=== PATIENT | female | born 1955 | race Caucasian/White ===

== ENCOUNTER 2017-09-15 08:00 | Outpatient (CLI) | payer OTHER | END 2017-09-15 08:01 | disposition home or self-care (01) | LOC: LAB.R 08:00 | PROVIDERS: ATTEND Physician Assistant Medical | DX: R82.90 Unspecified abnormal findings in urine (principal) | CPT/HCPCS: 87077; 87086 ==

== ENCOUNTER 2017-10-05 08:00 | Outpatient (CLI) | payer OTHER | END 2017-10-05 08:01 | disposition home or self-care (01) | LOC: LAB.R 08:00 | PROVIDERS: ATTEND Physician Assistant Medical | DX: N39.0 Urinary tract infection, site not specified (principal) | CPT/HCPCS: 87077; 87086 ==

== ENCOUNTER 2017-10-19 08:00 | Outpatient (CLI) | payer OTHER | END 2017-10-19 08:01 | disposition home or self-care (01) | LOC: LAB.WCP 08:00 | PROVIDERS: ATTEND Physician Assistant Medical | DX: N39.0 Urinary tract infection, site not specified (principal) | CPT/HCPCS: 87086 ==

== ENCOUNTER 2017-12-23 10:18 | Emergency (ER) | payer OTHER ==
[2017-12-23 10:44] LABS: BILIRUBIN,URINE NEGATIVE (NEGATIVE); GLUCOSE, URINE (UA) NEGATIVE (NEGATIVE); KETONES,URINE (UA) NEGATIVE (NEGATIVE); LEUKOCYTE ESTERASE, URINE LARGE (NEGATIVE); NITRITE,URINE NEGATIVE (NEGATIVE); OCCULT BLOOD,URINE SMALL (NEGATIVE); PROTEIN,URINE NEGATIVE (NEGATIVE); UROBILINOGEN,URINE 0.2 (NORMAL) E.U./dL (NORMAL)
[2017-12-23 10:46] LABS: CLARITY,URINE HAZY (CLEAR)
[2017-12-23 10:59] LABS: EPITHELIAL CELLS,UR FEW Renal Tubular /HPF (<= Few); SQUAMOUS EPITHELIAL CELL,UR MANY Squamous (<= Few)
[2017-12-23 11:00] LABS: BACTERIA,URINE Many /HPF (None Seen)
--- NOTE | 2017-12-23 12:02 | ED Physician Documentation ---
PD HPI ABD PAIN - Stated complaint Stated Complaint: SIDE PX - Chief complaint Chief Complaint: Abd Pain - History obtained from History obtained from: Patient - History of Present Illness Timing - onset: How many days ago (6) Timing - duration: Days (6) Timing - details: Gradual onset, Still present Quality: Cramping, Aching Location: RLQ, Suprapubic Radiation: No: Lower back, Left flank, Right flank Improved by: Laying still, Position. No: Eating Worsened by: Position, Palpation. No: Eating Associated symptoms: Nausea. No: Fever, Vomiting, Diarrhea, Constipation, Dysuria (but did have some frequency) Similar symptoms before: Has not had sx before Recently seen: Clinic (went to clinic urgent care and Rx with Macrobid for possible UTI. She says she thought they did a culture but not sure.) Review of Systems Constitutional: denies: Fever, Chills, Myalgias Cardiac: denies: Palpitations Respiratory: denies: Dyspnea, Cough GI: reports: Abdominal Pain, Nausea. denies: Vomiting, Constipation, Diarrhea : reports: Frequency. 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 - Present Medications Home Medications: Ambulatory Orders Medication Instructions Recorded Confirmed Cephalexin [Keflex] 500 mg PO TID #24 capsule 12/23/17 Metronidazole [Flagyl] 500 mg PO BID #14 tablet 12/23/17 Naproxen 375 mg PO BID #20 tablet 12/23/17 - Allergies Allergies/Adverse Reactions: Allergies Allergy/AdvReac Type Severity Reaction Status Date / Time NSAIDS (Non-Steroidal Allergy Unknown Verified 12/23/17 10:31 Anti-Inflamma sulfamethoxazole Allergy Unknown Verified 12/23/17 10:31 [From ] trimethoprim [From ] Allergy Unknown Verified 12/23/17 10:31 - Social History Does the pt smoke?: No Smoking Status: Never smoker PD ED PE NORMAL - Vitals Vital signs reviewed: Yes - General General: Alert and oriented X 3, No acute distress, Well developed/nourished - HEENT HEENT: Pharynx benign - Neck Neck: Supple, no meningeal sign, No adenopathy - Cardiac Cardiac: RRR, No murmur - Respiratory Respiratory: Clear bilaterally - Abdomen Abdomen: Normal bowel sounds, Soft, Non distended, No organomegaly, Other ( tender in lower abd left more than right, without fullness nor percussion/ rebound tenderness. ) - Female Female : Deferred - Rectal Rectal: Deferred - Back Back: No CVA TTP - Derm Derm: Normal color, Warm and dry, No rash - Neuro Neuro: Alert and oriented X 3, No motor deficit, Normal speech Results - Vitals Vitals: Oxygen O2 Source Room air - Labs Labs: Laboratory Tests 12/23/17 12/23/17 10:25 12:56 WBC 7.5 RBC 4.74 Hgb 13.8 Hct 41.1 MCV 86.8 MCH 29.1 MCHC 33.5 RDW 13.5 Plt Count 227 MPV 8.2 Neut # 5.7 Lymph # 1.0 L [place] # 0.6 Eos # 0.1 Baso # 0.0 Absolute Nucleated RBC 0.00 Nucleated RBC % 0.0 Urine Color YELLOW Urine Clarity HAZY Urine pH 6.0 Ur Specific Wheeler <=1.005 Urine Protein NEGATIVE Urine Glucose (UA) NEGATIVE Urine Ketones NEGATIVE Urine Occult Blood SMALL H Urine Nitrite NEGATIVE Urine Bilirubin NEGATIVE Urine Urobilinogen 0.2 (NORMAL) Ur Leukocyte Esterase LARGE H Urine RBC 6-10 H Urine WBC >25 H Ur Epithelial Cells FEW Renal Tubular Ur Squamous Epith Cells MANY Squamous H Urine Bacteria Many H Ur Microscopic Review INDICATED Urine Culture Comments NOT INDICATED - Rads (name of study) abd CT Radiology: Prelim report reviewed (sigmoid diverticulitis without complication) , EMP read contemporaneously PD MEDICAL DECISION MAKING - ED course Complexity details: reviewed results, considered differential (could have UTI based on UA but not totally convincing. Got Abd CT which showed some diverticulitis in sigmoid. Abx choice should cover both. ), d/w patient Departure - Departure Disposition: 01 Home, Self Care Clinical Impression: Sigmoid diverticulitis Abdominal pain Qualifiers: Abdominal location: lower abdomen, unspecified Qualified Code(s): R10.30 - Lower abdominal pain, unspecified Condition: Stable Record reviewed to determine appropriate education?: Yes Instructions: ED Diverticulitis Follow-Up: Lashawn Canales PA-C [Primary Care Provider] - Prescriptions: Cephalexin [Keflex] 500 mg PO TID #24 capsule Metronidazole [Flagyl] 500 mg PO BID #14 tablet Naproxen 375 mg PO BID #20 tablet Comments: Drink lots of fluids. There does appear to be some inflammation around the sigmoid area diverticulum and this would be accounting for your discomfort. His urine tests suggest a mild infection at as possible but this will get covered with the antibiotics. The main issue seems to be diverticulitis. Naproxen twice daily for a week for inflammation. Metronidazole and cephalexin antibiotics for a week as well. Recheck if not improving over the next several days. Discharge Date/Time: 12/23/17 14:22
[2017-12-23 13:03] LABS: BASOPHILS % (AUTO) 0.4 %; EOSINOPHILS # (AUTO) 0.1 10^3/uL (0.0-0.7); EOSINOPHILS % (AUTO) 1.9 %; HGB - HEMOGLOBIN 13.8 g/dL (12.0-16.0); LYMPHOCYTES % (AUTO) 13.3 %; MEAN CORPUSCULAR HEMOGLOBIN 29.1 pg (27.0-31.0); MEAN CORPUSCULAR HGB CONC 33.5 g/dL (32.0-36.0); MEAN CORPUSCULAR VOLUME 86.8 fL (81.0-99.0); MEAN PLATELET VOLUME 8.2 fL (7.9-10.8); MONOCYTES # (AUTO) 0.6 10^3/uL (0.0-1.0); MONOCYTES % (AUTO) 7.9 %; NEUTROPHILS # (AUTO) 5.7 10^3/uL (1.5-6.6); NEUTROPHILS % (AUTO) 76.5 %; PLT - PLATELET COUNT 227 10^3/uL (130-450); RED BLOOD COUNT 4.74 10^6/uL (4.20-5.40); RED CELL DISTRIBUTION WIDTH 13.5 % (12.0-15.0); WHITE BLOOD COUNT 7.5 x10^3/uL (4.8-10.8)
--- NOTE | 2017-12-23 13:31 | CT Report ---
EXAM: CT ABDOMEN AND PELVIS EXAM DATE: 12/23/2017 12:57 PM. CLINICAL HISTORY: Right lower abd pain for 6 days. COMPARISONS: 01/14/2008. TECHNIQUE: Routine helical CT imaging was performed through the abdomen and pelvis. IV contrast: None . Enteric contrast: No. Reconstructions: Coronal and sagittal. In accordance with CT protocol optimization, one or more of the following dose reduction techniques w ere utilized for this exam: automated exposure control, adjustment of mA and/or KV based on patient s ize, or use of iterative reconstructive technique. FINDINGS: Lung Bases: Minimal bibasilar scar/atelectasis. Included portions of the heart are unremarkable. Trac e pericardial effusion. Small hiatal hernia. Liver: Unenhanced images of the liver are unremarkable. Gallbladder/Bile Ducts: Unenhanced images of the gallbladder unremarkable. No biliary ductal dilatati on. Spleen: Normal. Pancreas: Normal. Adrenal Glands: Normal. Kidneys: No hydronephrosis. No nephrolithiasis. No ureteral dilatation or ureteral calculi. Peritoneal Cavity/Bowel: Stomach is minimally distended. No bowel obstruction. No free air. Moderate volume of stool in the colon. Diverticulosis of the colon larger the distal colon. Small focal area o f edema along the diverticula along the proximal sigmoid colon noted with slight thickening of the co felicia suggested. No pericolonic abscess or free air. The cecum is in the right mid abdomen. The appendi x is well visualized and normal. Pelvic Organs: Urinary bladder is unremarkable. No bladder calculi. No adnexal masses. No pelvic free fluid . No pelvic adenopathy. Vasculature: Vascular calcifications. No aneurysm. Bones: No acute osseous abnormalities. Mild lumbar facet arthropathy. Other: None. IMPRESSION: 1. Normal appendix. 2. Probable mild low-grade sigmoid diverticulitis. No pericolonic abscess or free air. 3. Colonic diverticulosis. No bowel obstruction. 4. No nephrolithiasis or hydronephrosis. [facility] Referring Provider Line: [phone] SITE ID: [id number]
[2017-12-23 14:23] VITALS: BP 108/56
== END 2017-12-23 14:22 | disposition home or self-care (01) ==
LOC: ED 10:18
DX: K57.32 Diverticulitis of large intestine without perforation or abscess without bleeding (principal)
CPT/HCPCS: 36415; 74176; 81001; 81003; 85025; 87086; 99283; 99284

== ENCOUNTER 2017-12-25 08:00 | Outpatient (CLI) | payer OTHER ==
[2017-12-25 13:24] LABS: ALBUMIN 4.3 g/dL (3.2-5.5); ALBUMIN/GLOBULIN RATIO 1.5 (1.0-2.2); ALKALINE PHOSPHATASE 54 IU/L (42-121); ALT ALANINE AMINOTRANSFERASE 33 IU/L (10-60); AST ASPARTATE AMINOTRANSFERASE 22 IU/L (10-42); BILIRUBIN,TOTAL 0.7 mg/dL (0.2-1.0); BUN - BLOOD UREA NITROGEN 12 mg/dL (6-20); CALCIUM 8.9 mg/dL (8.5-10.3); CARBON DIOXIDE - CO2 28 mmol/L (21-32); CHLORIDE 98 mmol/L (101-111); CHOL/HDL RATIO 3.3 (<4.4); CHOLESTEROL 200 mg/dL; CREATININE 0.7 mg/dL (0.4-1.0); GFR - MDRD 85 (>89); GLUCOSE 89 mg/dL (70-100); HDL CHOLESTEROL 60 mg/dL; LDL CHOLESTEROL,CALCULATED 126 mg/dL; LDL/HDL RATIO 2.1 (<4.4); SODIUM 134 mmol/L (135-145); TOTAL PROTEIN 7.2 g/dL (6.7-8.2); VLDL CHOLESTEROL 14 mg/dL
[2017-12-26 13:24] LABS: HEPATITIS C ANTIBODY NON-REACTIVE (NON-REACTIVE)
== END 2017-12-25 08:01 | disposition home or self-care (01) ==
LOC: LAB.WCP 08:00
PROVIDERS: ATTEND Physician Assistant Medical
DX: Z00.00 Encounter for general adult medical examination without abnormal findings (principal); Z11.59 Encounter for screening for other viral diseases
CPT/HCPCS: 36415; 80053; 80061; 83721; 84443; 86803

== ENCOUNTER 2017-12-29 11:54 | Outpatient (CLI) | payer OTHER ==
--- NOTE | 2017-12-30 12:23 | Mammography Report ---
DIGITAL SCREENING MAMMOGRAM: 12/29/2017 HISTORY: Routine screening. COMPARISON: 07/17/2016, 11/24/2014, 10/12/2013, 05/09/2010. TECHNIQUE: Bilateral digital CC, exaggerated CC, and oblique lateral projections are performed. FINDINGS: The breast tissue is heterogeneously dense. There is no dominant mass, architectural distortion, skin thickening, suspicious microcalcifications, or interval change. IMPRESSION: NEGATIVE. ACR BI-RADS CODE 1-NEGATIVE. SUGGEST RETURN TO ROUTINE SCREENING IN 12 MONTHS. STANDARD QUALIFYING STATEMENTS: 1. This examination was reviewed with the aid of Computer-Aided Detection (CAD). 2. A negative or benign imaging report should not delay biopsy if clinically suspicious findings are present. Consider surgical consultation if warranted. More than 5% of cancers are not identified by imaging. 3. Dense breasts may obscure an underlying neoplasm. TD: 12/30/2017 12:22
== END 2017-12-29 11:55 | disposition home or self-care (01) ==
LOC: DI.N 11:54
PROVIDERS: ATTEND Physician Assistant Medical
DX: Z12.31 Encounter for screening mammogram for malignant neoplasm of breast (principal)
CPT/HCPCS: 77067

== ENCOUNTER 2020-05-08 06:21 | Outpatient (CLI) | payer OTHER ==
[2020-05-08 06:37] LABS: BASOPHILS # (AUTO) 0.1 10^3/uL (0.0-0.1); BASOPHILS % (AUTO) 0.9 %; EOSINOPHILS # (AUTO) 0.1 10^3/uL (0.0-0.7); EOSINOPHILS % (AUTO) 1.1 %; HGB - HEMOGLOBIN 13.1 g/dL (12.0-16.0); LYMPHOCYTES # (AUTO) 2.4 10^3/uL (1.5-3.5); LYMPHOCYTES % (AUTO) 43.9 %; MEAN CORPUSCULAR HEMOGLOBIN 29.6 pg (27.0-31.0); MEAN CORPUSCULAR HGB CONC 31.6 g/dL (32.0-36.0); MEAN CORPUSCULAR VOLUME 93.5 fL (81.0-99.0); MONOCYTES # (AUTO) 0.5 10^3/uL (0.0-1.0); MONOCYTES % (AUTO) 8.1 %; NEUTROPHILS # (AUTO) 2.5 10^3/uL (1.5-6.6); NEUTROPHILS % (AUTO) 45.6 %; PLT - PLATELET COUNT 256 10^3/uL (130-450); RED BLOOD COUNT 4.43 10^6/uL (4.20-5.40); RED CELL DISTRIBUTION WIDTH 12.5 % (12.0-15.0); WHITE BLOOD COUNT 5.5 x10^3/uL (4.8-10.8)
[2020-05-08 06:50] LABS: HEMOGLOBIN A1C 0.54 g/dL
[2020-05-08 07:05] LABS: ALBUMIN 4.2 g/dL (3.2-5.5); ALBUMIN/GLOBULIN RATIO 1.6 (1.0-2.2); ALKALINE PHOSPHATASE 52 IU/L (42-121); ALT ALANINE AMINOTRANSFERASE 29 IU/L (10-60); AST ASPARTATE AMINOTRANSFERASE 24 IU/L (10-42); BILIRUBIN,TOTAL 0.6 mg/dL (0.2-1.0); BUN - BLOOD UREA NITROGEN 16 mg/dL (6-20); CALCIUM 8.8 mg/dL (8.5-10.3); CARBON DIOXIDE - CO2 26 mmol/L (21-32); CHLORIDE 103 mmol/L (101-111); CHOL/HDL RATIO 4.2 (<4.4); CHOLESTEROL 239 mg/dL; CREATININE 0.8 mg/dL (0.4-1.0); GLUCOSE 94 mg/dL (70-100); HDL CHOLESTEROL 57 mg/dL; LDL CHOLESTEROL,CALCULATED 159 mg/dL; LDL/HDL RATIO 2.8 (<4.4); SODIUM 136 mmol/L (135-145); TOTAL PROTEIN 6.8 g/dL (6.7-8.2); VLDL CHOLESTEROL 23 mg/dL
[2020-05-08 10:40] LABS: HB2 TOTAL 13.8 g/dL; HEMOGLOBIN A1C % 5.7 % (4.6-6.2)
== END 2020-05-08 06:22 | disposition home or self-care (01) ==
LOC: LAB 06:21
PROVIDERS: ATTEND Physician Assistant Medical
DX: R74.8 Abnormal levels of other serum enzymes (principal); R73.01 Impaired fasting glucose; E78.5 Hyperlipidemia, unspecified; K57.92 Diverticulitis of intestine, part unspecified, without perforation or abscess without bleeding
CPT/HCPCS: 36415; 80053; 80061; 83036; 83721; 84443; 85025

== ENCOUNTER 2020-05-10 07:00 | Outpatient (CLI) | payer SELFPAY | END 2020-05-10 23:59 | disposition home or self-care (01) | LOC: LAB.R 07:00 | PROVIDERS: ATTEND Physician Assistant Medical | DX: N39.0 Urinary tract infection, site not specified (principal) | CPT/HCPCS: 87077; 87086; 87181 ==

== ENCOUNTER 2020-05-25 09:07 | Outpatient (CLI) | payer SELFPAY ==
--- NOTE | 2020-05-28 10:34 | Mammography Report ---
BILATERAL DIGITAL SCREENING MAMMOGRAM 3D/2D: 05/25/2020 CLINICAL: Routine screening. Comparison is made to exams dated: 12/29/2017 mammogram, 07/17/2016 mammogram, 11/24/2014 mammogram, an d 10/12/2013 mammogram - [facility]. The tissue of both breasts is heterogeneously dense. This may lower the sensitivity of mammography. No significant masses, calcifications, or other findings are seen in either breast. There has been no significant interval change. IMPRESSION: NEGATIVE There is no mammographic evidence of malignancy. A 1 year screening mammogram is recommended. This exam was interpreted at Station ID: [id number]. NOTE: For mammograms, a report in lay terms will be sent to the patient. Approximately 15% of breast malignancies will not be visualized mammographically. In the management of a palpable breast mass, a negative mammogram must not discourage biopsy of a clinically suspicious lesion. Electronically Signed By: Luis Walker M.D. aty/penrad:05/25/2020 12:58:08 ACR BI-RADS Category 1: Negative 3341F PARENCHYMAL PATTERN: (D) - The breast(s) demonstrate(s) heterogeneously dense fibroglandular darrell villa. BI-RADS CATEGORY: (1) - 1 RECOMMENDATION: (ANNUAL) - Recommend routine annual screening mammography. [id number] 1 year screening LATERALITY: (B)
== END 2020-05-25 09:08 | disposition home or self-care (01) ==
LOC: DI.N 09:07
DX: Z12.31 Encounter for screening mammogram for malignant neoplasm of breast (principal)
CPT/HCPCS: 77063; 77067

== ENCOUNTER 2020-12-19 07:24 | Outpatient (CLI) | payer SELFPAY | END 2020-12-19 23:59 | disposition home or self-care (01) | LOC: LAB.N 07:24 | PROVIDERS: ATTEND Family Medicine | DX: R30.0 Dysuria (principal) | CPT/HCPCS: 87077; 87086; 87181 ==

== ENCOUNTER 2021-11-30 08:00 | Outpatient (CLI) | payer MEDICARE, OTHER | END 2021-11-30 23:59 | LOC: LAB.N 08:00 | PROVIDERS: ATTEND Family Medicine | DX: R30.0 Dysuria (principal) | CPT/HCPCS: 87077; 87086; 87181 ==

== ENCOUNTER 2023-03-03 07:09 | Outpatient (CLI) | payer MEDICARE, OTHER | END 2023-03-03 07:10 | disposition home or self-care (01) | LOC: DI.N 07:09 | PROVIDERS: ATTEND Emergency Medicine | DX: Z53.9 Procedure and treatment not carried out, unspecified reason (principal) ==

== ENCOUNTER 2023-08-31 09:19 | Outpatient (CLI) | payer MEDICARE, OTHER ==
--- NOTE | 2023-09-01 12:21 | Mammography Report ---
BILATERAL DIGITAL SCREENING MAMMOGRAM 3D/2D: 08/31/2023 CLINICAL: Routine screening. Comparison is made to exams dated: 05/25/2020 mammogram, 12/29/2017 mammogram, 07/17/2016 mammogram, mammogram, and 10/12/2013 mammogram - [facility]. Both breasts are heterogeneously dense, which may obscure small masses (category c / 51-75% glandular tissue). No significant masses, calcifications, or other findings are seen in either breast. There has been no significant interval change. IMPRESSION: NEGATIVE There is no mammographic evidence of malignancy. A 1 year screening mammogram is recommended. Based on the Tyrer Cuzick model (a risk assessment model) the patients lifetime risk is 6.4% and her 10 year risk is 3.2%. According to the ACR, ACS, and NCCN guidelines, an annual breast MRI exam gabi g with mammogram is recommended if the patients lifetime risk is 20% or greater. This exam was interpreted at Station ID: [id number]. NOTE: For mammograms, a report in lay terms will be sent to the patient. Approximately 15% of breast malignancies will not be visualized mammographically. In the management of a palpable breast mass, a negative mammogram must not discourage biopsy of a clinically suspicious lesion. Electronically Signed By: Luis feldman/igor:08/31/2023 11:44:26 letter sent: No_Letter ACR BI-RADS Category 1: Negative 3341F PARENCHYMAL PATTERN: (D) - The breast(s) demonstrate(s) heterogeneously dense fibroglandular darrell villa. BI-RADS CATEGORY: (1) - 1 Mammogram [id number] 1 year screening LATERALITY: (B)
== END 2023-08-31 09:20 | disposition home or self-care (01) ==
LOC: DI 09:19
PROVIDERS: ATTEND Nurse Practitioner Family
DX: Z12.31 Encounter for screening mammogram for malignant neoplasm of breast (principal); R92.333 Mammographic heterogeneous density, bilateral breasts

== ENCOUNTER 2024-03-21 09:45 | Outpatient (CLI) | payer MEDICARE, OTHER ==
--- NOTE | 2024-03-21 13:51 | XRAY Report ---
PROCEDURE: Neck Soft Tissue INDICATIONS: THROAT IRRITATION TECHNIQUE: 2 views of the neck were acquired. COMPARISON: None FINDINGS: Airway: The airway appears to demonstrate mild narrowing in the upper portion. Adenoids appear promi nent. Soft tissues: Prevertebral soft tissues are normal in thickness. The epiglottis and aryepiglottic f olds appear normal. No soft tissue gas. Bones: No suspicious bony lesions. Visualized cervical spine is normally aligned. IMPRESSION: Mild narrowing of the upper airway with prominent adenoids. No priors are available for comparison. A s clinically indicated, further follow-up with CT may be obtained. Reviewed by: Addie Waterman MD on 03/21/2024 1:50 PM PDT Approved by: Addie Waterman MD on 03/21/2024 1:50 PM PDT Station ID: [id number]
== END 2024-03-21 10:00 | disposition home or self-care (01) ==
LOC: DI.N 09:45
PROVIDERS: ATTEND Nurse Practitioner
DX: J39.2 Other diseases of pharynx (principal); N30.90 Cystitis, unspecified without hematuria
CPT/HCPCS: 87086

== ENCOUNTER 2024-03-21 15:03 | Emergency (ER) | payer MEDICARE, OTHER ==
[2024-03-21 15:17] VITALS: BP 115/62; O2SAT 97
--- NOTE | 2024-03-21 15:36 | ED Physician Documentation ---
PD HPI HEENT - Stated complaint Stated Complaint: THROAT PX - Chief complaint Chief Complaint: General - History obtained from History obtained from: Patient - History of Present Illness Timing - onset: How many days ago (2-3) Timing - duration: Days (2-3) Timing - details: Gradual onset, Still present Location: Throat (had UTI symptoms and seen walk in with Rx of antibiotic. Was taking it past 3 days. Onset soon after taking abx was feeling of some swelling in throat and dyaspnea. No hives nor rash. Dixon increased symptoms after next couple doses of abx. did not take abx the past day. Slightly less feeling.) Recently seen: Clinic (seen walk in for UTI symptoms. Rx Macrobid and pt states feeling throat swelling with each dose. No hives. Normal voice and swallowing. Pt had soft tissue neck xray with reading recommending CT neck if indicated clnically. 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 - Present Medications Home Medications: Ambulatory Orders Medication Instructions Recorded Confirmed Naproxen 375 mg PO BID #20 tablet 12/23/17 cephALEXin [Keflex] 500 mg PO TID #24 capsule 12/23/17 metroNIDAZOLE [Flagyl] 500 mg PO BID #14 tablet 12/23/17 - Allergies Allergies/Adverse Reactions: Allergies Allergy/AdvReac Type Severity Reaction Status Date / Time nitrofurantoin Allergy Edema Verified 03/21/24 16:36 [From Macrobid] NSAIDS (Non-Steroidal Allergy Unknown Verified 03/21/24 16:36 Anti-Inflamma sulfamethoxazole Allergy Unknown Verified 03/21/24 16:36 [From Septra] trimethoprim [From Septra] Allergy Unknown Verified 03/21/24 16:36 aspirin AdvReac Anxiety Verified 03/21/24 16:36 niacin AdvReac Anxiety Verified 03/21/24 16:36 - Social History Does the pt smoke?: No Smoking Status: Never smoker Does the pt drink ETOH?: No Does the pt have substance abuse?: No - Immunizations Immunizations are current?: Yes PD ED PE NORMAL - General General: Alert and oriented X 3, No acute distress, Well developed/nourished - HEENT HEENT: Atraumatic, Moist mucous membranes, Pharynx benign - Neck Neck: Supple, no meningeal sign, No adenopathy - Cardiac Cardiac: RRR, No murmur - Derm Derm: Normal color, Warm and dry - Neuro Neuro: Alert and oriented X 3, No motor deficit, No sensory deficit, Normal speech Results - Vitals Vitals: Oxygen O2 Source Room air PD Medical Decision Making - ED course Complexity details: reviewed results (pt says the Walk In did UA and it was looking improved. I would wait culture and see if need other antibiotic, but otherwise to hold on it for now pending culture ), re-evaluated patient (I would treat this as allergic reaction with steroid and antihistamine. There renita not be a focal process based on that, so CT is not going to give any actionable answers/findings. Pt is okay with no CT and would prefer it. ), considered differential (pt with some feeling throat swelling timing iwht abx treatment. No hives. No dyspnea, distorted voice nor inability to swallow. Not having infectious symptoms of URI. ), d/w patient Departure - Departure Disposition: 01 Home, Self Care Clinical Impression: Swelling of throat, Allergic reaction Condition: Stable Record reviewed to determine appropriate education?: Yes Follow-Up: BRENDA HIGGINBOTHAM PA [Primary Care Provider] - Comments: I know it can be difficult and confusing with an opinion stiffer but I would feel that you do not need a CT scan at this point. We would treat it as a allergic reaction and generally there is not going to be a localized area that would need intervention with a an allergic reaction as there might be say with an abscess or infection that might potentially need draining. As such I would go with the steroid for the inflammation. They had prescribed the prednisone for you and that is reasonable. You were given a dose of a different steroid called Decadron here just to get it started and your next dose on the steroid would be tomorrow. In addition I would suggest an antihistamine such as cetirizine/Zyrtec 1 tablet twice daily for the next week. Stay well-hydrated with liquids. Food as tolerated. I would anticipate improving symptoms over the next day or 2 and resolved by a few days. Return if worsening. At this point it we will see what their urine test and culture show from the walk-in clinic. If any persisting infection then we may need to go with a different antibiotic but at this point we will call a good enough. Forms: PCP List Discharge Date/Time: 03/21/24 16:38
[2024-03-21] MEDS: dexAMETHasone 4 MG TABLET PO STA (16:30)
[2024-03-21] MEDS: CETIRIZINE 10 MG TABLET PO STA (16:30)
== END 2024-03-21 16:38 | disposition home or self-care (01) ==
LOC: ED 15:03
DX: T78.40XA Allergy, unspecified, initial encounter (principal); R22.1 Localized swelling, mass and lump, neck; J39.0 Retropharyngeal and parapharyngeal abscess; N30.90 Cystitis, unspecified without hematuria
CPT/HCPCS: 70360; 87086; 99283; A9270; J8540; 87077; 87181